=== PATIENT | male | born 1980 | race Caucasian/White ===

== ENCOUNTER 2016-10-10 07:15 | Inpatient (IN) | payer OTHER ==
[~2016-10-10] VITALS: Ht 167.6 cm; Wt 63.3 kg
[2016-10-10] MEDS ORDERED: ACETAMINOPHEN 325 MG TAB PO PRN ×2 (07:30→13:00)
[2016-10-10] MEDS ORDERED: ONDANSETRON 4 MG INJ IV PRN (07:30)
[2016-10-10 07:47] LABS: ADD SCAN DIFF NO
[2016-10-10 07:56] LABS: BASOPHILS % 0.6 % (0.0-2.0); EOSINOPHILS % 1.3 % (0.0-7.0); HEMATOCRIT 30.7 % (42.0-52.0); HEMOGLOBIN 11.6 g/dl (14.0-18.0); LYMPHOCYTES # 1.4 10^3/ul (0.8-2.9); LYMPHOCYTES % 42.8 % (15.0-51.0); MEAN CORPUSCULAR HEMOGLOBIN 29.7 pg (29.0-33.0); MEAN CORPUSCULAR VOLUME 78.7 fl (82.0-101.0); MEAN PLATELET VOLUME 10.7 fl (7.4-10.4); MONOCYTE # 0.5 10^3/ul (0.3-0.9); MONOCYTES % 14.1 % (0.0-11.0); NEUTROPHIL # 1.3 10^3/ul (1.6-7.5); NEUTROPHILS % 41.2 % (39.0-77.0); PLATELET COUNT 123 10^3/UL (140-415); RED CELL DISTRIBUTION WIDTH 11.5 % (11.5-14.5); WHITE BLOOD COUNT 3.2 10^3/ul (4.8-10.8)
[2016-10-10 08:16] LABS: INR 1.07; PROTIME 13.9 Sec (12.2-14.2); PT RATIO 1.1
[2016-10-10 08:17] LABS: PARTIAL THROMBOPLASTIN TIME 29.9 Sec (25.0-35.0)
--- NOTE | 2016-10-10 08:21 | RADRPT ---
PROCEDURE: Chest Radiograph. CLINICAL INDICATION: Chest pain TECHNIQUE: Single frontal chest radiograph. COMPARISON: None available FINDINGS: The cardiomediastinal silhouette is within normal limits. No infiltrate or effusion is seen. Th e bones are intact. IMPRESSION: 1. Unremarkable chest radiograph. RPTAT: KK .Darwin Solorzano MD, MD Date Time Electronically viewed and signed by .Darwin Solorzano MD, on 10/10/2016 08:21 .B/
[2016-10-10 08:23] LABS: CALCIUM 9.3 mg/dl (8.4-10.2); CREATININE 0.68 mg/dl (0.61-1.24); POTASSIUM 4.5 mmol/L (3.5-5.1)
[2016-10-10 08:24] LABS: MEAN CORPUSCULAR HGB CONC 37.8 g/dl (32.0-37.0)
[2016-10-10 08:50] LABS: TROPONIN-I 0.018 ng/ml (0.00-0.12)
--- NOTE | 2016-10-10 10:59 | ERA ---
ER Documentation Chief Complaint Date/Time DATE: 10/10/16 TIME: 10:57 Chief Complaint chest pain, dehydration - pt was fasting x 30 days HPI Patient is a 36-year-old male with no medical problems who presents with chest pain and hyponatremia. He was a transfer from [facility] and was supposed to be a direct admission. However there were no telemetry beds available in the hospital and the patient is capitated to [facility] and so he was brought to the emergency department to await a telemetry bed. He said that he started with chest pain yesterday which is midsternal and sharp in nature. He has been fasting for 35 days and has a plan to fast for 40 days. His blood pressure was low and his sodium was low as well at [place]. He said that he tried an electrolyte drink and protein shake last night. He does not currently have a primary doctor. ROS All systems reviewed and are negative except as per history of present illness. Medications Home Meds No Active Prescriptions or Reported Meds Allergies Allergies: Coded Allergies: No Known Allergy (Unverified , 10/10/16) PMhx/Soc Medical and Surgical Hx: pt denies Surgical Hx History of Surgery: No Anesthesia Reaction: No Hx Neurological Disorder: No Hx Respiratory Disorders: No Hx Cardiac Disorders: No Hx Psychiatric Problems: No Hx Miscellaneous Medical Probl: Yes (gastritis; anal fissure ; gerd) Hx Alcohol Use: No Hx Substance Use: No Hx Tobacco Use: No Smoking Status: Never smoker FmHx Family History: No coronary disease Physical Exam Vitals Vital Signs Date Time Temp Pulse Resp B/P Pulse Ox O2 Delivery O2 Flow Rate FiO2 10/10/16 10:32 64 18 96/62 98 Nasal Cannula 2.0 10/10/16 07:21 Nasal Cannula 2 10/10/16 07:17 98.0 74 17 103/76 100 Physical Exam Const: No acute distress Head: Atraumatic Eyes: Normal Conjunctiva ENT: Normal External Ears, Nose and Mouth. Neck: Full range of motion..~ No meningismus. Resp: Clear to auscultation bilaterally Cardio: Regular rate and rhythm, no murmurs Abd: Soft, non tender, non distended. Normal bowel sounds Skin: No petechiae or rashes Back: No midline or flank tenderness Ext: No cyanosis, or edema Neur: Awake and alert Psych: Normal Mood and Affect Result Diagram: 10/10/1630 10/10/16 0730 Results 24 hrs Laboratory Tests Test 10/10/16 07:30 White Blood Count 3.210^3/ul Red Blood Count 3.9010^6/ul Hemoglobin 11.6g/dl Hematocrit 30.7% Mean Corpuscular Volume 78.7fl Mean Corpuscular Hemoglobin 29.7pg Mean Corpuscular Hemoglobin Concent 37.8g/dl Red Cell Distribution Width 11.5% Platelet Count 79104^3/UL Mean Platelet Volume 10.7fl Neutrophils % 41.2% Lymphocytes % 42.8% Monocytes % 14.1% Eosinophils % 1.3% Basophils % 0.6% Nucleated Red Blood Cells % 0.0/100WBC Neutrophils # 1.310^3/ul Lymphocytes # 1.410^3/ul Monocytes # 0.510^3/ul Eosinophils # 0.010^3/ul Basophils # 0.010^3/ul Nucleated Red Blood Cells # 0.010^3/ul Prothrombin Time 13.9Sec Prothrombin Time Ratio 1.1 INR International Normalized Ratio 1.07 Activated Partial Thromboplast Time 29.9Sec Sodium Level 132mmol/L Potassium Level 4.5mmol/L Chloride Level 92mmol/L Carbon Dioxide Level 30mmol/L Anion Gap 15 Blood Urea Nitrogen 11mg/dl Creatinine 0.68mg/dl Glucose Level 110mg/dl Calcium Level 9.3mg/dl Troponin I 0.018ng/ml Current Medications Medications (Trade) Dose Ordered Sig/Holly Route PRN Reason Start Time Stop Time Status Last Admin Dose Admin Ondansetron HCl (Zofran Inj) 4 mg ER BRIDGE PRN IV NAUSEA AND/OR VOMITING 10/10/16 07:30 10/11/16 07:29 Acetaminophen (Tylenol Tab) 650 mg ER BRIDGE PRN PO MILD PAIN/FEVER 10/10/16 07:30 10/11/16 07:29 Procedures/MDM EKG read by me: Rate/Rhythm: Regular rate and rhythm at a normal rate Intervals: Normal Impression: No evidence of ischemia or arrhythmia Chest x-ray negative per radiology. Patient is a 36-year-old male who presents with chest pain and hyponatremia. His sodium currently is mildly low at 132. He has anemia with a hemoglobin of 11.2 but does not require transfusion. He also has leukopenia and thrombocytopenia. The patient will be admitted to the care of Dr. Patricia from the panel team who already accept the patient in transfer from [facility]. Unfortunately there were no beds available and the patient needed to board in the emergency department. At this point I doubt pneumonia, pneumothorax, pulmonary embolism, or aortic dissection. Departure Diagnosis: Primary Impression: Hyponatremia Additional Impression: Chest pain Qualified Code: R07.9 - Chest pain, unspecified type Condition: BETZAIDA Barnett MD Oct 10, 2016 10:59
[2016-10-10] MEDS ORDERED: ALBUTEROL/IPRATROPIUM (NEB) 3 ML AMP HHN PRN (13:00)
[2016-10-10] MEDS ORDERED: NACL 0.9% 3 ML SYG IV SCH (13:00)
[2016-10-10] MEDS ORDERED: NITROGLYCERIN (SL) 0.4 MG TAB SL PRN (13:00)
[2016-10-10 17:38] VITALS: TEMP 98
[2016-10-10 18:15] VITALS: BP 92/58; PULSE 78; RESP 18
[2016-10-10 18:25] VITALS: PULSE 76
[2016-10-10 19:53] VITALS: Ht 167.6 cm; Wt 63.3 kg
[2016-10-10 19:55] LABS: CREATINE KINASE 121 IU/L (23-200)
[2016-10-10 19:59] VITALS: BP 95/66; RESP 18
[2016-10-10 20:14] LABS: CK-MB 1.21 ng/ml (0.0-2.4); TROPONIN-I < 0.012 ng/ml (0.00-0.12)
[2016-10-10 20:38] VITALS: PULSE 78
[2016-10-10] MEDS: DEXTROSE 5%-0.9% NACL 1,000 ML IV SCH (21:41)
[2016-10-10] MEDS: ONDANSETRON 4 MG INJ IV PRN (22:28)
[2016-10-10] MEDS: morphine 2 MG INJ IV PRN (22:28)
--- NOTE | 2016-10-10 23:53 | HP ---
Date/Time of Note Date/Time of Note DATE: 10/10/16 TIME: 23:52 Assessment/Plan VTE Prophylaxis VTE Prophylaxis Intervention: SCD's Lines/Catheters IV Catheter Type (from Nrs): [place] Lock Urinary Cath still in place: No Assessment/Plan Assessment/Plan IMPRESSION 1. Generalized Weakness 2. Chest Pain 3. Microcytic Anemia, eval for iron def 4. Hyponatremia PLAN cont tele monitoring trend trops resume diet if pt willing, otherwise ensure/juices. will place dietary consult check iron profile coreect electrolytes as needed HPI/ROS Admit Date/Time Admit Date/Time Oct 10, 2016 at 07:19 Hx of Present Illness Patient is a 36 yo male with no significant PMH who presented to ER c/o chest pain and generalized weakness. He is on a 40 day fasting mission and has been fasting for last 35 days. he said he has only been drinking water until 3 days ago when he started drinking protein fortified juices. He denied SOB, fever/ chills, N/V. In ER, his Na 132, WBC 3.2, Hgb 11.6 otherwise rest of labs, including vitals have been stable. . PMH/Family/Social Past Medical History Medical History: no pertinent history Past Surgical History Past Surgical Hx: no surgical history Social History Alcohol Use: none Smoking Status: Former smoker Drug Use: none Exam/Review of Systems Vital Signs Vitals Vital Signs Date Time Temp Pulse Resp B/P Pulse Ox O2 Delivery O2 Flow Rate FiO2 10/10/16 20:38 78 10/10/16 20:00 Nasal Cannula 2.0 10/10/16 19:59 97.8 18 95/66 98 Exam Constitutional: alert, oriented, other (apears weak) Head: atraumatic, normocephalic Eyes: EOMI, PERRL Respiratory: clear to auscultation, normal air movement Cardiovascular: nl pulses, regular rate and rhythm Gastrointestinal: non-tender, soft Extremities: normal pulses Labs Result Diagram: 10/10/1672910/10/16 07 Medications Medications Current Medications Ondansetron HCl (Zofran Inj) 4 mg Q6H PRN IV NAUSEA AND/OR VOMITING Last administered on 10/10/16t 22:28; Admin Dose 4 MG; Start 10/10/16 at 13:00 Aspirin (Aspirin) 81 mg DAILY PO ; Start 10/11/16 at 09:00 Nitroglycerin (Nitroglycerin (Sl Tab) 0.4 Mg) 1 tab Q5M PRN SL CHEST PAIN; Start 10/10/16 at 13:00 Acetaminophen (Tylenol Tab) 650 mg Q6H PRN PO PAIN LEVEL 1-3 OR FEVER; Start at 13:00 Morphine Sulfate (morphine) 2 mg Q4H PRN IV PAIN LEVEL 7-10 Last administered on 10/10/16 22:28; Admin Dose 2 MG; Start 10/10/16 at 13:00 Enoxaparin Sodium 40 mg 40 mg DAILY SC ; Start 10/11/16 at 09:00 Dextrose/Sodium Chloride (D5-NS) 1,000 ml @ 125 mls/hr Q8H IV Last administered on 10/10/16 21:41; Admin Dose 125 MLS/HR; Start 10/10/16 at 21:30 LEEANN MCNAMARA MD Oct 10, 2016 23:52
[2016-10-11] VITALS (13 sets, daily range): BP systolic 90–106; BP diastolic 52–66; PULSE 69–104; RESP 16–20
[2016-10-11] MEDS: ONDANSETRON 4 MG INJ IV PRN (04:05)
[2016-10-11] MEDS: morphine 2 MG INJ IV PRN ×2 (04:05→22:01)
[2016-10-11] MEDS: DEXTROSE 5%-0.9% NACL 1,000 ML IV SCH ×3 (04:09→21:57)
[2016-10-11 07:09] LABS: ADD SCAN DIFF NO
[2016-10-11 07:25] LABS: BASOPHILS % 0.7 % (0.0-2.0); EOSINOPHILS % 0.7 % (0.0-7.0); HEMATOCRIT 32.8 % (42.0-52.0); HEMOGLOBIN 11.7 g/dl (14.0-18.0); LYMPHOCYTES # 1.9 10^3/ul (0.8-2.9); LYMPHOCYTES % 43.9 % (15.0-51.0); MEAN CORPUSCULAR HEMOGLOBIN 29.3 pg (29.0-33.0); MEAN CORPUSCULAR HGB CONC 35.7 g/dl (32.0-37.0); MEAN PLATELET VOLUME 11.3 fl (7.4-10.4); MONOCYTE # 0.5 10^3/ul (0.3-0.9); MONOCYTES % 12.6 % (0.0-11.0); NEUTROPHIL # 1.8 10^3/ul (1.6-7.5); NEUTROPHILS % 41.9 % (39.0-77.0); RED CELL DISTRIBUTION WIDTH 12.1 % (11.5-14.5); WHITE BLOOD COUNT 4.3 10^3/ul (4.8-10.8)
[2016-10-11 07:36] LABS: CREATINE KINASE 90 IU/L (23-200)
[2016-10-11 07:46] LABS: ALBUMIN 3.8 g/dl (3.3-4.9); ALBUMIN/GLOBULIN RATIO 2.11; BILIRUBIN,INDIRECT 0.3 mg/dl (0-1.1); BILIRUBIN,TOTAL 0.3 mg/dl (0.2-1.3); CALCIUM 9.3 mg/dl (8.4-10.2); CHOL/HDL RATIO 2.6 RATIO; CREATININE 0.68 mg/dl (0.61-1.24); MAGNESIUM 1.5 mg/dl (1.7-2.5); TOTAL PROTEIN 5.6 g/dl (6.1-8.1)
[2016-10-11 08:12] LABS: TROPONIN-I < 0.012 ng/ml (0.00-0.12)
[2016-10-11 08:15] LABS: THYROID STIMULATING HORMONE 2.96 MIU/L (0.465-4.680)
[2016-10-11] MEDS: ASPIRIN 81 MG TAB PO SCH (08:29)
[2016-10-11] MEDS: ENOXAPARIN 40 MG/0.4 ML SYG SC SCH (08:34)
[2016-10-11 09:33] LABS: PLATELET COUNT 125 10^3/UL (140-415)
[2016-10-11 09:54] LABS: CK-MB 0.58 ng/ml (0.0-2.4)
[2016-10-11] MEDS ORDERED: MAGNESIUM SULFATE 3 GM in SOD CHLORIDE 0.9% 100 ML IVPB ONE (10:00)
[2016-10-11 11:22] LABS: IRON 63 ug/dl (35-150)
[2016-10-11 11:31] LABS: TOTAL IRON BINDING CAPACITY 200 ug/dl (241-421)
[2016-10-11] MEDS ORDERED: FAMOTIDINE 20 MG INJ IV SCH (16:30)
--- NOTE | 2016-10-11 19:09 | PN ---
Date/Time of Note Date/Time of Note DATE: 10/11/16 TIME: 19:08 Assessment/Plan VTE Prophylaxis VTE Prophylaxis Intervention: SCD's Lines/Catheters IV Catheter Type (from Nrsg): Peripheral IV Urinary Cath still in place: No Assessment/Plan Assessment/Plan IMPRESSION 1. Generalized Weakness 2. Chest Pain 3. Microcytic Anemia, eval for iron def 4. Hyponatremia PLAN cont tele monitoring trend trops resume diet if pt willing, otherwise ensure/juices, per dietary consult check iron profile correct electrolytes as needed Subjective 24 Hr Interval Summary Free Text/Dictation c/o acid reflux symptoms and abd burning sensation Exam/Review of Systems Vital Signs Vitals Vital Signs Date Time Temp Pulse Resp B/P Pulse Ox O2 Delivery O2 Flow Rate FiO2 10/11/16 16:30 96 10/11/16 15:43 98.0 18 97/55 98 10/11/16 13:00 Room Air 10/11/16 08:47 2.0 Intake and Output 10/10/16 10/10/16 10/11/16 15:00 23:00 07:00 Intake Total 3075 ml Output Total 2250 ml Balance 825 ml Exam Constitutional: alert, oriented, other (apears weak) Head: atraumatic, normocephalic Eyes: EOMI, PERRL Respiratory: clear to auscultation, normal air movement Cardiovascular: nl pulses, regular rate and rhythm Gastrointestinal: non-tender, soft Extremities: normal pulses Results Result Diagram: 10/11/16 0641 10/11/16 0641 Results 24 hrs Laboratory Tests Test 10/10/16 19:20 10/11/16 06:41 10/11/16 06:45 10/11/16 08:32 Creatine Kinase 121 90 Creatine Kinase Index 1.0 0.6 Creatinine Kinase MB (Mass) 1.21 0.58 Troponin I < 0.012 < 0.012 White Blood Count 4.3 #L Red Blood Count 4.00 L Hemoglobin 11.7 L Hematocrit 32.8 L Mean Corpuscular Volume 82.0 Mean Corpuscular Hemoglobin 29.3 Mean Corpuscular Hemoglobin Concent 35.7 Red Cell Distribution Width 12.1 Platelet Count 125 L Mean Platelet Volume 11.3 H Neutrophils % 41.9 Lymphocytes % 43.9 Monocytes % 12.6 H Eosinophils % 0.7 Basophils % 0.7 Nucleated Red Blood Cells % 0.0 Neutrophils # 1.8 Lymphocytes # 1.9 Monocytes # 0.5 Eosinophils # 0.0 Basophils # 0.0 Nucleated Red Blood Cells # 0.0 Giant Platelets 1+ Sodium Level 141 Potassium Level 4.0 Chloride Level 99 Carbon Dioxide Level 32 H Anion Gap 14 Blood Urea Nitrogen 4 L Creatinine 0.68 Glucose Level 64 #L Hemoglobin A1c 4.9 Calcium Level 9.3 Magnesium Level 1.5 L Total Bilirubin 0.3 Direct Bilirubin 0.00 Indirect Bilirubin 0.3 Aspartate Amino Transf (AST/SGOT) 23 Alanine Aminotransferase (ALT/SGPT) 31 Alkaline Phosphatase 46 Total Protein 5.6 L Albumin 3.8 Globulin 1.80 Albumin/Globulin Ratio 2.11 Triglycerides Level 67 Cholesterol Level 142 LDL Cholesterol, Calculated 76 HDL Cholesterol 53 Cholesterol/HDL Ratio 2.6 Thyroid Stimulating Hormone (TSH) 2.960 Iron Level 63 Total Iron Binding Capacity 200 L Percent Iron Saturation 32 Ferritin 349.0 Bedside Glucose 140 Medications Medications Current Medications Ondansetron HCl (Zofran Inj) 4 mg Q6H PRN IV NAUSEA AND/OR VOMITING Last administered on 10/11/16 04:05; Admin Dose 4 MG; Start 10/10/16 at 13:00 Aspirin (Aspirin) 81 mg DAILY PO ; Start 10/11/16 at 09:00 Nitroglycerin (Nitroglycerin (Sl Tab) 0.4 Mg) 1 tab Q5M PRN SL CHEST PAIN; Start 10/10/16 at 13:00 Acetaminophen (Tylenol Tab) 650 mg Q6H PRN PO PAIN LEVEL 1-3 OR FEVER; Start at 13:00 Morphine Sulfate (morphine) 2 mg Q4H PRN IV PAIN LEVEL 7-10 Last administered on 10/11/16 04:05; Admin Dose 2 MG; Start 10/10/16 at 13:00 Enoxaparin Sodium 40 mg 40 mg DAILY SC Last administered on 10/11/16 08:34; Admin Dose 40 MG; Start 10/11/16 at 09:00 Dextrose/Sodium Chloride (D5-NS) 1,000 ml @ 125 mls/hr Q8H IV Last administered on 10/11/16 13:47; Admin Dose 125 MLS/HR; Start 10/10/16 at 21:30 Famotidine (Pepcid Iv) 20 mg BID IV Last administered on 10/11/16t 16:30; Admin Dose 20 MG; Start 10/11/16 at 16:30 LEEANN MCNAMARA MD Oct 11, 2016 19:09
[2016-10-11] MEDS: PANTOPRAZOLE 40 MG INJ IV SCH (20:28)
[2016-10-11] MEDS: AL HYDROX/MG HYDROX/SIMETH 30 ML CUP PO PRN (23:57)
[2016-10-12] VITALS (9 sets, daily range): BP systolic 91–100; BP diastolic 55–63; PULSE 78–104; RESP 16–18
[2016-10-12] MEDS ORDERED: LORAZEPAM 2 MG INJ IV PRN (01:25)
[2016-10-12] MEDS: DEXTROSE 5%-0.9% NACL 1,000 ML IV SCH ×2 (05:30→13:44)
[2016-10-12] MEDS: PANTOPRAZOLE 40 MG INJ IV SCH (05:30)
[2016-10-12 06:32] LABS: ADD SCAN DIFF NO
[2016-10-12 06:39] LABS: EOSINOPHILS % 0.6 % (0.0-7.0); HEMOGLOBIN 12.3 g/dl (14.0-18.0); LYMPHOCYTES # 1.1 10^3/ul (0.8-2.9); LYMPHOCYTES % 35.4 % (15.0-51.0); MEAN CORPUSCULAR HEMOGLOBIN 29.5 pg (29.0-33.0); MEAN CORPUSCULAR HGB CONC 35.1 g/dl (32.0-37.0); MEAN CORPUSCULAR VOLUME 83.9 fl (82.0-101.0); MONOCYTE # 0.3 10^3/ul (0.3-0.9); MONOCYTES % 10.2 % (0.0-11.0); NEUTROPHIL # 1.7 10^3/ul (1.6-7.5); NEUTROPHILS % 52.8 % (39.0-77.0); PLATELET COUNT 123 10^3/UL (140-415); RED BLOOD COUNT 4.17 10^6/ul (4.70-6.10); RED CELL DISTRIBUTION WIDTH 12.5 % (11.5-14.5); WHITE BLOOD COUNT 3.1 10^3/ul (4.8-10.8)
[2016-10-12 07:16] LABS: ALANINE AMINOTRANSFERASE 30 IU/L (13-69); ALBUMIN 4.3 g/dl (3.3-4.9); ALBUMIN/GLOBULIN RATIO 2.26; ALKALINE PHOSPHATASE 48 IU/L (42-121); ANION GAP 12 (8-16); ASPARTATE AMINO TRANSFERASE 21 IU/L (15-46); BILIRUBIN,INDIRECT 0.5 mg/dl (0-1.1); BILIRUBIN,TOTAL 0.5 mg/dl (0.2-1.3); CALCIUM 8.8 mg/dl (8.4-10.2); CARBON DIOXIDE 30 mmol/L (21-31); CHLORIDE 100 mmol/L (97-110); CREATININE 0.72 mg/dl (0.61-1.24); GLUCOSE 86 mg/dl (70-220); POTASSIUM 3.9 mmol/L (3.5-5.1); SODIUM 138 mmol/L (135-144); TOTAL PROTEIN 6.2 g/dl (6.1-8.1)
[2016-10-12 07:17] LABS: BLOOD UREA NITROGEN < 2 mg/dl (7-20)
[2016-10-12] MEDS: ASPIRIN 81 MG TAB PO SCH (08:40)
[2016-10-12] MEDS: ENOXAPARIN 40 MG/0.4 ML SYG SC SCH (08:42)
[2016-10-12] MEDS: AL HYDROX/MG HYDROX/SIMETH 30 ML CUP PO PRN (12:26)
[2016-10-12] MEDS ORDERED: LORAZEPAM 1 MG TAB PO PRN (16:00)
[2016-10-12] MEDS ORDERED: UDMYL PO (16:33)
--- NOTE | 2016-10-12 16:33 | PDOCDIS ---
Discharge Instructions CONDITION Patient Condition: Stable HOME CARE INSTRUCTIONS: Diet Instructions: Regular FOLLOW UP/APPOINTMENTS Follow-up Plan follow-up with primary care doctor LEEANN MCNAMARA MD Oct 12, 2016 16:33
[2016-10-12] MEDS ORDERED: PANTOPRAZOLE (EC) 40 MG TAB PO SCH (18:00)
== END 2016-10-12 18:47 | disposition home or self-care (01) | DRG 641 ==
LOC: E/R 07:15 → EDSTATUS 07:15 → TEL 07:19
PROVIDERS: ADMIT Internal Medicine; ATTEND Internal Medicine
DX: E87.1 Hypo-osmolality and hyponatremia (principal); D50.9 Iron deficiency anemia, unspecified; R07.9 Chest pain, unspecified
CPT/HCPCS: 36415; 71010; 80048; 80053; 80061; 82550; 82553; 82728; 82962; 83036; 83540; 83735; 84443; 84484; 85025; 85610; 85730; 93005; C9113; J1650; J2060; J2270; J2405; J3475; J7042